=== PATIENT | male | born 1945 | race Caucasian/White ===

== ENCOUNTER 2023-04-06 08:16 | Outpatient (CLI) | payer MEDICARE, BC, SELFPAY ==
--- NOTE | 2023-04-06 09:57 | W.ANESCHARGE ---
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
== END 2023-04-06 08:17 | disposition home or self-care (01) ==
LOC: OP CLINIC 08:18
PROVIDERS: PCP Surgery; Visit Provider Internal Medicine Gastroenterology
DX: K63.5 Polyp of colon (principal); Z86.010 Personal history of colon polyps
CPT/HCPCS: 00811; 45380; 88305; 99100; J2704

== ENCOUNTER 2024-01-20 10:42 | Day surgery (SDC) | payer MEDICARE, BC, SELFPAY ==
[2024-01-20] VITALS (21 sets, daily range): BP systolic 95–162; BP diastolic 67–108; PULSE 49–100; RESP 14–18; TEMP 35.3–36.9; O2SAT 92–96; BMI 36.6
--- NOTE | 2024-01-20 | CRLHL7_ITS ---
For Patients: As a result of the Cures Act, medical imaging exams and procedure reports are released immediately into your electronic medical record. You may view this report before your referring provider. If you have questions, please contact your health care provider. Indication: Postop Technique: Two views right knee Findings/Impression: Hardware from a right total knee arthroplasty is in satisfactory position. Bone alignment is normal. No sign of acute fracture. Postop changes are within normal limits. Dictated by Eliud Bunch MD @ 01/22/2024 12:35:43 PM (Electronically Signed)
[2024-01-20] MEDS: OXYCODONE (CR) 10 MG TAB.ER.12H PO (11:17)
[2024-01-20] MEDS: SODIUM CHLORIDE 0.9 % (FLUSH) 10 ML SYRINGE IVF (11:17)
[2024-01-20] MEDS: ACETAMINOPHEN 500 MG TABLET 1000 MG PO ×2 (11:17→18:47)
[2024-01-20] MEDS: LACTATED RINGERS 1000 ML 1,000 ML 100 ML IV (12:50)
[2024-01-20] MEDS: fentaNYL 100 MCG/2 ML inj IVP (12:55)
[2024-01-20] MEDS: MIDAZOLAM HCL 1 MG/ML inj IVP (12:55)
--- NOTE | 2024-01-20 13:04 | SUR.PREOP ---
TIME?OUT:?1255 PT/RN/MDA?VERIFICATION?OF?SURGICAL?SITE Right Knee,?PROCEDURE Nerve Block,?AND?CONSENT OBTAINED?PRIOR?TO?INVASIVE?PROCEDURE.
--- NOTE | 2024-01-20 13:11 | P.NB_ITS ---
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 Images saved: Yes Medications given in 5ml increments after negative aspiration: Marcaine %: 0.25 mL: 9 Needle gauge: 25 Patient tolerated procedure well: Yes Block Charges Block Charge (with Pro Fee): Genicular Nerve Block
--- NOTE | 2024-01-20 13:11 | P.NB_ITS ---
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 Images saved: Yes Medications given in 5ml increments after negative aspiration: Marcaine %: 0.25 mL: 15 Needle gauge: 20 Precedex (mcg): 25 Patient tolerated procedure well: Yes Block Charges Block Charge (with Pro Fee): Femoral Nerve Use of Ultrasound Machine for Block: Yes- US Guidance/pain block
--- NOTE | 2024-01-20 13:12 | W.ANESCHARGE ---
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
[2024-01-20] MEDS: TRANEXAMIC ACID 100 MG/ML INJ 1000 MG IV (13:42)
[2024-01-20] MEDS: CEFAZOLIN 2 GM in 0.9 % SODIUM CHLORIDE Mini-bag 100 ML IVPB ×2 (13:42→20:11)
--- NOTE | 2024-01-20 13:54 | W.PM.H&PU ---
History & Physical Update History & Physical Update H&P Reviewed and patient assessed: No changes noted
--- NOTE | 2024-01-20 15:07 | PM.ORPRC ---
Procedure Note Date of procedure: 01/20/24 Procedure: PREOPERATIVE DIAGNOSIS: 1. Right knee osteoarthritis, primary, severe POSTOPERATIVE DIAGNOSIS: 1. Right knee osteoarthritis, primary, severe PROCEDURE: 1. Right total knee arthroplasty - subvastus SURGEON: Christian Cruz MD. DENTAL INTERNSHIP: PR[place] - Of note, a skilled assistant manager airside operations was critical for this case to aid in patient positioning, tissue retraction, limb manipulation/positioning, and closure. ANESTHESIA: Spinal anesthetic IMPLANTS: DePuy J&J all cemented TKA - Attune PS femur size 7, size 6 tibia, 5 mm poly spacer, 41mm patella TOURNIQUET: 90 min at 300 torr EBL: 50 ml COMPLICATIONS: None evident INDICATIONS: The patient is a pleasant 78-year-old male who has experienced severe right knee pain and difficulty bearing weight. Workup included x-rays which revealed severe osteoarthrosis in the knee. Given the deformity, the dysfunction, and the pain, as well as the failure of nonoperative management, recommendation was made for surgery. FINDINGS: Full-thickness chondral loss diffusely throughout the medial and patellofemoral compartments. To lesser degree lateral compartment. Degenerative meniscus pathology both compartments but greater on the medial side. Large effusion upon entering the joint. Large tricompartmental osteophytes also noted. DESCRIPTION OF PROCEDURE: Following a thorough discussion of risks, benefits, and alternatives consent was obtained and the right knee was marked. The patient was brought to the operating room and placed supine on the operating table. Induction of anesthesia was undertaken. 2 g IV Ancef and 1 g tranexamic acid was administered within 1 hr of incision preoperatively. Proper time-out was performed identifying proper patient, site, procedure. The operative extremity was prepped and draped in the appropriate sterile fashion using ChloraPrep after the patient was positioned supine with all bony prominences well padded. A longitudinal, anterior, midline skin incision was made starting approximately 3cm proximal to the superior pole of the patella and advanced distal to the tibial tubercle. A subvastus approach was utilized. A medial subperiosteal sleeve was created with knife, chavez elevator and curved osteotome. The retropatellar fatpad was resected and the synovium in the suprapatellar pouch excised to visualize the anterior femoral cortex. Femoral preparation was performed via an intramedullary guide. Step drill allowed access into the femoral canal. The distal cutting guide was placed with 5? of valgus and 11 mm cut on the distal femur due to a mild flexion contracture. Femur was sized using a anterior referencing guide in 3? of external rotation. This found have a best fit with the sizing noted above. The 4 in 1 cutting block was then placed, and the distal femur shaped accordingly. The box cut was then created and the trial implant inserted to confirm appropriate fit. We turned our attention to the proximal tibia. Extramedullary guide was utilized for cutting with the goal of being 90 degree cut from the mechanical axis of the tibia in the varus/valgus plane utilizing tibial crest as the primary alignment. Initially a 2 mm resection was performed from the medial tibial plateau. Ultimately, balancing was achieved in both flexion and extension in both varus and valgus. The knee was able to achieve full extension as well comfortably. The patella was initially measured and found have a thickness of 26 mm. It was resected back to approximately 15 mm. It was sized to be a best fit with as noted above. This was drilled, trial placed. All trials were placed and found to have an excellent stability and balance. At this stage, trial implants were removed, the knee was thoroughly irrigated with normal saline, and the cement was mixed. After irrigation, the knee was thoroughly dried, and cement placed, with the real tibial and femoral implants placed along with the patella. Trial poly spacer was placed and confirmed to have excellent range of motion and full extension, and the real poly spacer opened and inserted. All extra cement was removed, and a 3 min Betadine soak performed. Finally, a final irrigation round with normal saline was performed. Closure performed with 0 Vicryl and #0 Stratafix for the quad tendon/retinaculum. 2-0 Vicryl for the subcutaneous and 4-0 Stratafix for subcuticular closure. Dressings were applied and the patient was awoken from anesthesia after the tourniquet deflated and transferred the PACU in stable condition. A skilled assistant manager airside operations was critical for this case to aid in patient positioning, tissue retraction, bone exposure, limb manipulation/positioning, patient safety, and closure. PLAN: 1. Weight bear as tolerated operative extremity. 2. 23 hr perioperative antibiotics. 3. Ice. 4. PT/OT consults for ambulation assistance/mobility education. 5. Social work consult for discharge planning. 6. DVT prophylaxis with at SCDs and aspirin twice daily.
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
--- NOTE | 2024-01-20 15:42 | W.ANESCHARGE ---
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
--- NOTE | 2024-01-20 16:02 | SUR.PHASEI ---
Patient more alert now after surgery, talking and comfortable, taking ice chips.
--- NOTE | 2024-01-20 16:11 | SUR.PHASEI ---
Patient meets anesthesia discharge criteria from PACU. Waiting for X-ray to arrive to take x-ray of knee.
--- NOTE | 2024-01-20 19:37 | PC.NURSE ---
[id number]: The patient is pleasant and alert and oriented. VSS on RA post surgery. R knee dressing CDI. Has not been up or voided yet. Ate 100% of dinner with no N/V. Saline locked. Plexi pulses applied. The patients family was here after surgery. The patients CPAP was noted to not be in the patients room... [facility] was contacted in regards to obtaining from [facility]. Towards 190 the patient reported 8/10 pain in R knee with movement... ice to R knee, Tylenol given, declined other medication intervention at this time. Call light within reach.
[2024-01-20] MEDS: SENNOSIDES 1 TAB TABLET 2 TAB PO (20:11)
[2024-01-20] MEDS: ASPIRIN 81 MG TABLET EC PO (20:11)
[2024-01-21] MEDS: ACETAMINOPHEN 500 MG TABLET 1000 MG PO ×2 (00:32→06:31)
[2024-01-21] MEDS: CEFAZOLIN 2 GM in 0.9 % SODIUM CHLORIDE Mini-bag 100 ML IVPB (04:09)
[2024-01-21 04:17] VITALS: BP 127/82; PULSE 81; RESP 18; TEMP 36.8; O2SAT 94
[2024-01-21 06:42] LABS: Basophils Absolute Auto 0.01 K/uL (0.00-0.30); Basophils Percent Auto 0.1 % (0.0-3.0); Hemoglobin* 12.8 gm/dL (13.5-17.5); Lymphocytes Percent Auto 8.3 % (20-44); Mean Corpuscular HGB Conc 33 gm/dL (32-36); Mean Corpuscular Hemoglobin 32 pg (26-34); Mean Corpuscular Volume 97 fL (80-100); Monocytes Percent Auto 8.4 % (0.0-11.0); Neutrophils Percent Auto 83.2 % (42.0-72.0); Platelet Count* 245 K/uL (140-440); RDW Coefficient of Variation % 12.8 % (11.5-15.5); Red Blood Count 4.03 m/uL (4.30-5.90); White Blood Count* 8.81 K/uL (4.50-11.00)
[2024-01-21 06:43] LABS: Slide Review Reflex No
--- NOTE | 2024-01-21 07:00 | PC.NURSE ---
Pt alert oriented and vitally stable. Pt pain rated 8/10 throughout shift though stated it was tolerable and did not want a prn. Educated pt on premedicating prior to therapies, pt agreeable to take oxy after breakfast & before therapies, will pass along to oncoming RN.?Pt up to the bathroom, 1 assist walker and gait belt, tolerated well. Dressing on right knee is clean, dry and intact.
[2024-01-21 07:14] LABS: Potassium* 4.3 mmol/L (3.6-5.1); Sodium* 134 mmol/L (135-149)
[2024-01-21 07:17] LABS: Blood Urea Nitrogen* 23 mg/dL (7-30); Creatinine* 1.1 mg/dL (0.5-1.5); Est. Creatinine Clearance* 57.13; Estimated Glomerular Filt Rate 70 ml/min
[2024-01-21 08:09] VITALS: BP 119/71; PULSE 81; PULSE 95; RESP 18; TEMP 37; O2SAT 96
[2024-01-21] MEDS: OXYCODONE 5 MG TABLET PO (08:22)
[2024-01-21] MEDS: ASPIRIN 81 MG TABLET EC PO (08:23)
[2024-01-21] MEDS: SENNOSIDES 1 TAB TABLET 2 TAB PO (08:23)
[2024-01-21 11:00] VITALS: BP 137/79; PULSE 73
--- NOTE | 2024-01-21 11:48 | PM.ORPN ---
Subjective Subjective Date Seen: 01/21/24 Principal diagnosis: Status postop day 1 right total knee arthroplasty Interval history: Patient reports doing okay. No acute events over night. Pain managed with scheduled and PRN medications, ice. DVT prophylaxis: 81 mg aspirin by mouth twice daily, SCDs, walking. Denies fevers, chills, aches, N/V, CP, SOB/WEINBERG, or lightheadedness. States he experiences constipation from oxycodone and is reluctant to take this. Ortho Exam Narrative Exam Narrative: -Patient appears comfortable; no apparent acute distress -Alert and oriented times 3 -Operative knee moderately swollen; soft tissues supple; minimal ecchymosis; no erythematous streaking. Warmth appropriate -Surgical dressing clean, dry, intact; no drainage -Bilateral calfs soft; no significant swelling, edema, tenderness, erythema, discoloration, warmth, or palpable cords -2+ DP/PT pulses, intact dermatomes and myotomes distally (5/5 strength) Const Vital Signs, click to edit/add: Vital Signs - 24 hr 01/20/24 12:55 01/20/24 13:00 01/20/24 15:38 Temperature 97.2 F L Pulse Rate 55 L 53 L 57 L Pulse Rate [Pulse Oximeter] Respiratory Rate 16 16 16 Blood Pressure 146/92 H 122/90 H 111/69 Blood Pressure [Left Arm] Pulse Oximetry 96 96 92 Oxygen Delivery Method Nasal Cannula Nasal Cannula Room Air Oxygen Flow Rate 2 2 01/20/24 15:40 01/20/24 15:45 01/20/24 15:50 Temperature Pulse Rate 62 54 L 49 L Pulse Rate [Pulse Oximeter] Respiratory Rate 16 16 16 Blood Pressure 116/68 95/71 99/67 Blood Pressure [Left Arm] Pulse Oximetry 93 93 96 Oxygen Delivery Method Room Air Room Air Room Air Oxygen Flow Rate 01/20/24 15:55 01/20/24 16:00 01/20/24 16:05 Temperature 97.3 F L Pulse Rate 55 L 58 L 53 L Pulse Rate [Pulse Oximeter] Respiratory Rate 17 17 17 Blood Pressure 107/80 105/73 103/67 Blood Pressure [Left Arm] Pulse Oximetry 95 95 94 Oxygen Delivery Method Room Air Room Air Room Air Oxygen Flow Rate 01/20/24 16:10 01/20/24 16:20 01/20/24 16:30 Temperature 97.3 F L 97.2 F L Pulse Rate 53 L 51 L 51 L Pulse Rate [Pulse Oximeter] Respiratory Rate 17 16 14 Blood Pressure 122/81 124/76 114/76 Blood Pressure [Left Arm] Pulse Oximetry 94 96 95 Oxygen Delivery Method Room Air Room Air Oxygen Flow Rate 01/20/24 16:45 01/20/24 17:00 01/20/24 17:15 Temperature 97.4 F L 97.5 F L 97.5 F L Pulse Rate 49 L 70 51 L Pulse Rate [Pulse Oximeter] Respiratory Rate 16 16 18 Blood Pressure 120/78 130/83 131/79 Blood Pressure [Left Arm] Pulse Oximetry 95 95 96 Oxygen Delivery Method Oxygen Flow Rate 01/20/24 17:45 01/20/24 18:15 01/20/24 19:00 Temperature 98.0 F 98.5 F 98.5 F Pulse Rate 56 L 70 72 Pulse Rate [Pulse Oximeter] Respiratory Rate 16 16 18 Blood Pressure 127/83 162/108 H 138/72 Blood Pressure [Left Arm] Pulse Oximetry 95 96 95 Oxygen Delivery Method Oxygen Flow Rate 01/20/24 20:00 01/20/24 20:00 01/20/24 23:00 Temperature 97.8 F 97.8 F Pulse Rate 99 Pulse Rate [Pulse Oximeter] 99 Respiratory Rate 18 18 Blood Pressure 125/83 Blood Pressure [Left Arm] 125/83 Pulse Oximetry 95 94 94 Oxygen Delivery Method Room Air Room Air Oxygen Flow Rate 01/20/24 23:00 01/20/24 23:00 01/21/24 04:17 Temperature 95.5 F L 98.2 F Pulse Rate Pulse Rate [Pulse Oximeter] 100 81 Respiratory Rate 18 18 18 Blood Pressure Blood Pressure [Left Arm] 123/84 127/82 Pulse Oximetry 94 94 94 Oxygen Delivery Method Room Air Room Air Room Air Oxygen Flow Rate 01/21/24 08:09 01/21/24 08:09 01/21/24 08:09 Temperature Pulse Rate Pulse Rate [Pulse Oximeter] 81 Respiratory Rate 18 18 Blood Pressure Blood Pressure [Left Arm] Pulse Oximetry 96 96 Oxygen Delivery Method Room Air Oxygen Flow Rate 01/21/24 08:09 Temperature 98.6 F Pulse Rate Pulse Rate [Pulse Oximeter] 95 Respiratory Rate 18 Blood Pressure Blood Pressure [Left Arm] 119/71 Pulse Oximetry 96 Oxygen Delivery Method Room Air Oxygen Flow Rate Assessment and Plan Assessment and plan (1) Status post right knee replacement: Problem details: 01/20/2024, Dr. Elkins Status: Acute (2) ANIA on CPAP: Status: Acute (3) Hearing loss: Status: Acute Plan - Complete 23 hour perioperative antibiotics. - PT/OT consult for education and assistance. - Social work consult for discharge planning - Prescribed analgesics as needed - explained how oxycodone is important to make sure he can progress through therapy adequately. We discussed stool softener to help with constipation. - DVT prophylaxis: 81 mg aspirin by mouth twice daily, walking, and SCDs - Anticipation is for discharge to home with family/friends today 01/21/2024 if the patient remains medically stable, pain is controlled, and they are safe with mobilization.
--- NOTE | 2024-01-21 11:58 | PC.NURSE ---
Nursing Care Hours: [id number] pt this shift calm and cooperative, alert and oriented. C/o pain 7-8/10, declines narcotic pain medications but is taking the acetaminophen. Agreed to take 5 mg oxycodone prior to PT/OT. Pain still at 7/10 after therapies, pt declined further narcotics and is icing knee. R knee swollen non pitting, light blue bruising from lateral mid thigh to calf. Instructed at discharge to come in if unable to bend the knee or the pain increases with medications. VSS, walking SB/independent with walker. Mild nausea in the morning, tolerated regular meal. Declined anti nausea or aromatherapy. Wheeled out to family vehicle in stable condition.
== END 2024-01-21 11:10 | disposition home or self-care (01) ==
LOC: OR 10:45 → MEDSURG 10:49
PROVIDERS: PCP Surgery; Visit Provider Orthopaedic Surgery Sports Medicine
PROC: (CPT 27447; principal; 2024-01-20 13:00)
DX: M17.11 Unilateral primary osteoarthritis, right knee (principal); G89.18 Other acute postprocedural pain; G47.33 Obstructive sleep apnea (adult) (pediatric); M35.3 Polymyalgia rheumatica; Z95.810 Presence of automatic (implantable) cardiac defibrillator; L40.9 Psoriasis, unspecified
CPT/HCPCS: 27447; 01402; 36415; 64447; 64454; 73560; 76942; 82565; 84132; 84295; 84520; 85025; 97110; 97116; 97161; 97165; 97530; 99100; A9270; C1776; J0665; J0690; J1100; J2250; J2405; J2704; J3010; J7120

== ENCOUNTER 2024-03-04 13:00 | Outpatient (RCR) | payer MEDICARE, BC, SELFPAY ==
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
--- OUTSIDE RECORDS SUMMARY | 2024-03-09 10:44 | XMS_ITS | Clinical Summary ---
Author Organization [employer] [facility] Address [place], [place] [address] Care Team Providers Care Retail Sales Merchandiser Name Role Phone Jeramie Lopez MD Primary Care Provider [phone] Allergies No known active allergies Medications CPAPIndications: Obstructive sleep apnea CPAP machine for home use at pressure: 8 cmw , Heated humidifier x 1 q 5 yr, Humidifier chamber x 1 q 6 mo, nasal mask x1 q 3mos, with cushion x 2 q mo, Heated tubing x 1 q 3 mo, Headgear x 1 q 6 mo, Filters: Disposable x 2 q mo non-disposable filters x1 q 6mo, Length of Need: 99 months, Frequency of use: Daily 1 Each 11 2 Active triamcinolone 0.1 % lotionIndication s:Psoriasis Apply topically to affected area(s) two times daily. Use for up to 2 weeks straight 60 mL 11 4 Active sildenafiL, pulm.hypertensio n, (REVATIO) 20 mg tabletIndication s:Erectile dysfunction, unspecified erectile dysfunction type Take 1-5 pills (start at lower dose and increase next time if needed) 30 mins prior to sexual intercourse 30 Tablet 1 4 Active Active Problems Problem Noted Date Diagnosed Date Obstructive sleep apnea 05/26/2019 Adenomatous colon polyp 02/28/2019 Overview (04/08/2023): Colonoscopy 01/2019 large polyp, repeat in 6 months at [facility] Colonoscopy 08/2019 normal, repeat in 3 years PEG prep Colonoscopy 03/2023 TA, repeat in 5 years Polymyalgia rheumatica 09/07/2015 Pacemaker 01/09/2015 Overview (01/09/2015): Placed 01/11 due to vasovagal syncope. Erectile dysfunction following simple prostatect zain 10/23/2014 Prostate cancer 09/04/2009 Overview (08/26/2013): Pesotum 3+3=6 Prostatectomy 2009 Unspecified hearing loss 06/13/2009 Overview (06/13/2009): High frequency and problems with Discrimination. Other psoriasis 01/15/2007 Overview (08/26/2013): On elbows Resolved Problems Problem Noted Date Diagnosed Date Resolved Date History of adenomatous polyp of colon 10/10/2019 01/07/2024 Symptomatic bradycardia 12/29/201412/28 LOC (loss of consciousness) 12/29/2014 01/11/2019 USP (current) use of anticoagulants 12/19/2013 01/16/2014 Metatarsalgia 07/30/2011 01/07/2024 Knee pain 06/13/2009 01/11/2019 Overview (06/13/2009): Left knee with valgus deformity and suspect leg length discrepancy. Routine general medical exam ination at a health care facility 11/25/2006 01/11/2019 Overview (02/17/2007): colonoscopy 02/11/2007 Recheck 10 yrs. Encounters Date Type Department Care Team Description 01/20/2024 Orders Only [facility] Scanner 1 scan: (1-Ord) [facility], XR KNEE RT 2V, 01/20/2024 01/07/2024 10:30 AM CDT Ancillary Procedure [facility] [address] [place] [address] 01/07/2024 9:25 AM CDT Office Visit [facility] [address] [place] [address] Jeramie Lopez MD Medicare ANNUAL (subsequent) Visit; Preoperative Exam (Right knee replacement [facility] Dr. Elkins 01/20/24) 01/07/2024 Travel from Last 3 Months Immunizations Name Administration Dates Next Due COVID-19 vaccine ([employer] 30mcg/0.3mL) P F, MDV 06/23/2020,06/02/2020 Td (Age >=7 Years) 11/04/1995 Tdap 07/25/2020,01/15/2007 Zoster (Zostavax-ZVL, live) 12/07/2012 Family History Medical History Relation Name Comments Heart Disease Father Crescencio Pulm Fibrosis/ Valve Replacement Psychiatric illness Father Crescencio onset af ter Heart Surgery Osteoporosis Mother Kelly Stroke Mother Kelly Cancer-colon No Family History Relation Name Status Comments Father Crescencio (Age 74) Mother Kelly Alive Social History Tobacco Use Types Packs/Day Years Used Date Smoking Tobacco: Former Cigarettes 1.5 13 1 967 - 03/30/1979 Smokeless Tobacco: Never Tobacco Cessation:Counseling Given: Not Answered Alcohol Use Standard Drinks/Week Comments Not Currently 0 (1 standard drink = 0.6 oz pur e alcohol) Socail beer PHQ-2 Answer Date Recorded PHQ-2 TOTAL SCORE 0 01/07/2024 Social Connections Answer Date Recorded Do you often feel lonely or isolated from those around you? 0 03/17/2023 Financial Resource Strain Answer Date R ecorded Difficulty of Paying Living Expenses 3 03/17/2023 Difficulty of Paying Living Expenses Not on file 03/17/2023 Food Insecurity Answer Date Recorded Do you worry your food will run out before you are able to buy more? 1 03/17/2023 Transportation Needs Answer Date Record ed Does lack of transportation keep you from medica l appointments? 1 03/17/2023 Does lack of transportation keep you from work, meetings or getting things that you need? 1 03/17/2023 Housing Stability Answer Date Recorded What is your housing situation today? 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 on file Not on file Not on file Not on file Not on file Not on file Not on file Obstetrics History Last Filed Vital Signs Vital Sign Reading Time Taken Comments Blood Pressure 121/83 01/07/2024 9:21 AM CDT Pulse 73 01/07/2024 9:21 AM CDT Temperature 36.2 C (97.1 F) 07/04/2020 11:38 AM CDT Respiratory Rate 20 05/25/2019 1:52 PM PRODUCT MGR Oxygen Saturation 95% 01/07/2024 9:21 AM CDT Inhaled Oxygen Concentration - - Weight 112.6 kg (248 lb 4.8 oz) 01/07/2024 9:21 AM CDT Height 177.5 cm (5' 9.88) 01/07/2024 9:21 AM CD T Body Mass Index 35.75 01/07/2024 9:21 AM CDT Plan of Treatment Upcoming Encounters Date Type Department Care Team (Late st Contact Info) Description 04/12/2024 11:30 AM PRODUCT MGR Cardiac Device Check [facility] [place] [facility] [address] [place] [address] Health Maintenance Due Date Last Done Comments Pneumococcal series for age 65+ (1 of 2 - PCV) 11/20/1951 Zoster (shingles) series for age 50+ (1 of 2) 02/01/2013 12/07/2012 RSV vaccine for adults or (1 - 1-dose 75+ series) 11/20/2022 COVID-19 vaccine series ( season) 2023 01/01/2021, 06/23/2020, 06/02/2020 Influenza for age 65+ 11/29/2023 BMI (ht and wt on same day) for age 18+ 01/06/2025 01/07/2024, 07/23/2021, 07/25/2020, Additional history exists Depression screening for age 12+ 01/06/2025 01/07/2024, 07/23/2021, 01/11/2019, Additional history exists Medicare Wellness for age 65+ 01/07/2025, 07/23/2021, 01/11/2019, Additional history exists Tetanus booster 07/25/2030 07/25/2020, 12/28, 11/04/1995 Hepatitis C screening for ag e 18-79 Completed 12/07/2018 Tdap Completed 07/25/2020, 01/15/2007 Medical Devices Implanted Type Area Program Support Specialist Device Identifier Shelf Expiration Date Model / Serial / Lot Dual Chamber Mri Conditional Pacemaker Implanted:2014 by Jigar Salazar MD (Quantity not on file) Standard Pacemaker [employer] ADVISA MRI [id number] / [id number] / Procedures Procedure Name Priority Date/Time Associated Diagnosis Comments SCAN-RADIOLOGY REPORT 01/20/2024 12:00 AM CDT EKG 12 LEAD Routine 01/08/2024 10:25 AM CDT WE[place]G (dyspnea on exertion) MA READING EKG - NO CHARGE, COMP ONLY Routine 01/08/2024 10:24 AM CDT [place]G (dyspnea on exertion) XR CHEST 2 VIEWS PA AND LATERAL Routine 01/07/2024 10:50 AM CDT [place]G (dyspnea on exertion) HEMOGLOBIN Routine 01/07/2024 10:37 AM CDT [place]G (dyspnea on exertion) PSA (TOTAL) ([facility]) Routine 01/07/2024 1 0:37 AM CDT Prostate cancer (HC) BASIC METABOLIC PANEL Routine 01/07/2024 10:37 AM CDT Stenosis of right carotid artery LIPID PANEL Routine 01/07/2024 10:37 AM CDT Stenosis of right carotid artery ANTI HCV Routine 12/07/2018 9:31 AM CDT Need for hepatitis C screening test from Last 3 Months or Most Recently Relevant to Health Maintenance Results * SCAN-RADIOLOGY REPORT (01/20/2024 12:00 AM CDT) Anatomical Region Laterality Modality Other us Scanner OTHER Final Result * EKG 12 LEAD (01/08/2024 10:25 AM CDT) us Jeramie Lopez MD EKG ORD Final Resu lt * MA READING EKG - NO CHARGE, COMP ONLY (01/08/2024 10:24 AM CDT) us Jeramie Lopez MD PB - PROVIDER READINGS Fin al Result * XR CHEST 2 VIEWS PA AND LATERAL (01/07/2024 10:50 AM CDT) Anatomical Region Laterality Modality CHEST, THORAX, Lung, HEART Compu apoorva Radiography 01/07/2024 2:38 PM CDT Impressions 01/07/2024 2:38 PM CDT 1. No acute cardiopulmonary disease is seen. Dictated by Pablo Urbina MD @ 01/07/2024 2:38:35 PM Dictated by: Pablo Urbina MD @ 01/07/2024 14:38:38 (Electronically Signed) Narrative 01/07/2024 2:38 PM CDT For Patients: As a result of the Cures Act, medical imaging exams and procedure reports are released immediately into your electronic medical record. You may view this report before your referring provider. If you have questions, please contact your health care provider. INDICATION: Dyspnea on exertion TECHNIQUE: Chest radiograph 3 views COMPARISON: 01/02/2015 FINDINGS: Mediastinum: The mediastinum is normal in appearance. The heart silhouette is normal in size and morphology. There is a left cardiac pacer present with leads in the right atrium and right ventricle. Lung: Both lungs are unremarkable in appearance with small lung volumes. No sign of pleural effusion seen. No pneumothorax is identified. Bone and Soft tissue: Unremarkable for age. Procedure Note Pablo Urbina MD - 01/07/2024 For Patients: As a result of the s Act, medical imagingexams and procedure reports are released immediately into your electronicmedical record. You may view this report before your referring provider.If you have questions, please contact your health care provider. INDICATION: Dyspnea on exertion TECHNIQUE: Chest radiograph 3 views COMPARISON: 01/02/2015 FINDINGS: Mediastinum: The mediastinum is normal in appearance. The heart silhouetteis normal in size and morphology. There is a left cardiac pacer presentwith leads in the right atrium and right ventricle. Lung: Both lungs are unremarkable in appearance with small lung volumes.No sign of pleural effusion seen. No pneumothorax is identified. Bone and Soft tissue: Unremarkable for age. IMPRESSION: 1. No acute cardiopulmonary disease is seen. Dictated by Pablo Urbina MD @ 01/07/2024 2:38:35 PM Dictated by: Pablo Urbina MD @ 01/07/2024 14:38:38 (Electronically Signed) Jeramie Lopez MD GENERAL IMAGING Final Resu lt * PSA (TOTAL) ([facility]) (01/07/2024 10:37 AM CDT) PSA, TOTAL 0.04 < OR = 4.00 ng/mL [facility] Comment: The total PSA value from this assay system is standardized against the WHO standard. The test result will be approximately 20% lower when compared to the equimolar-standardized total PSA (Hola Josefina). Comparison of serial PSA results should be interpreted with this fact in mind. This test was performed using the Siemens chemiluminescent method. Values obtained from different assay methods cannot be used interchangeably. PSA levels, regardless of value, should not be interpreted as absolute evidence of the presence or absence of disease. Blood BLOOD SPECIMEN / Unknown 01/07/2024 10:37 AM CDT 01/07/2024 10:38 AM CDT Jeramie Lopez MD SEND OUTS Final Resu lt [facility] [address] [place] [address], [place] [phone] [facility] [address] [place] [address] * HEMOGLOBIN (01/07/2024 10:37 AM CDT) HEMOGLOBIN 14.4 13.2 - 17.1 g/dL [facility] Blood BLOOD SPECIMEN / Unknown 01/07/2024 10:37 AM CDT 01/07/2024 10:38 AM CDT us Jeramie Lpoez MD HEMATOLOGY Final Resu lt [facility] [address] [place] [address], [place] [phone] [facility] [address] [place] [address] * LIPID PANEL (01/07/2024 10:37 AM CDT) CHOLESTEROL, TOTAL 151 <200 mg/dL [facility] HDL CHOLESTEROL 50 > OR = 40 mg/dL [facility] TRIGLYCERIDES 73 <150 mg/dL [facility] LDL-CHOLESTEROL 85 mg/dL (calc) [facility] Comment: Reference range: <100 Desirable range <100 mg/dL for primary prevention; <70 mg/dL for patients with CHD or diabetic patients with > or = 2 CHD risk factors. LDL-C is now calculated using the Rico calculation, which is a validated novel method providing better accuracy than the Friedewald equation in the estimation of LDL-C. Wyatt OQUENDO et al. ISSAC. 2013;310(19): 4674-3714 (http://education.[employer]/faq/DWF328) CHOL/HDLC RATIO 3.0 <5.0 (calc) [facility] NON HDL CHOLESTEROL 101 <130 mg/dL (calc) [facility] Comment: For patients with diabetes plus 1 major ASCVD risk factor, treating to a non-HDL-C goal of <100 mg/dL (LDL-C of <70 mg/dL) is considered a therapeutic option. Blood BLOOD SPECIMEN / Unknown 01/07/2024 10:37 AM CDT 01/07/2024 10:38 AM CDT us Jeramie Lopez MD CHEMISTRY Final Resu lt [facility] [address] [place] [address], [facility] [address] [place] [address] * BASIC METABOLIC PANEL (01/07/2024 10:37 AM CDT) GLUCOSE 90 65 - 99 mg/dL [facility] Comment: Fasting reference interval UREA NITROGEN (BUN) 22 7 - 25 mg/dL [facility] CREATININE 1.08 0.70 - 1.28 mg/dL [facility] EGFR 71 > OR = 60 mL/min/1. 73m2 [facility] BUN/CREATININE RATIO SEE NOTE: 6 - 22 (calc) [facility] Comment: Not Reported: BUN and Creatinine are within reference range. SODIUM 140 135 - 146 mmol/L [facility] POTASSIUM 4.7 3.5 - 5.3 mmol/L [facility] CHLORIDE 105 98 - 110 mmol/L [facility] CARBON DIOXIDE 27 20 - 32 mmol/L [facility] ELECTROLYTE BALANCE 8 7 - 17 mmol/L (calc) [facility] CALCIUM 9.6 8.6 - 10.3 mg/dL [facility] Blood BLOOD SPECIMEN / Unknown 01/07/2024 10:37 AM CDT 01/07/2024 10:38 AM CDT us Jeramie Lopez MD CHEMISTRY Final Resu lt [facility] [address] [place] [address], [address] [address] * ANTI HCV (12/07/2018 9:31 AM CDT) Pathologist [facility] HEPATITIS C ANTIBODY Non-React lisa Non-React lisa 12/07/2018 6:39 PM CDT [facility] Comment:Antibodies to HCV no t detected; does not exclude the possibility of exposure to HCV. Blood BLOOD SPECIMEN / Unknown Venipuncture / Unknown 12/07/2018 9:31 AM CDT 12/07/2018 9:31 AM CDT Jeramie Lopez MD SEND OUTS Final [facility]u lt [facility] [address] [place] [address], from Last 3 Months or Most Recently Relevant to Health Maintenance Insurance MEDICARE PART A [place] [address] [phone] [employer] BLUE MR PB ONLY [employer] [place] BLUE HB ONLY MEDICARE PART B HB ONLY MEDICARE PROVIDER BASED [facility] Advance Directives * Full Code (Latest Code Status on File) Date Activated Date Inactivated Comments 01/01/2015 9:09 AM 01/02/2015 2:06 PM * Full Code Date Activated Date Inactivated Comments 12/31/2014 8:21 AM 01/01/2015 9:09 AM Care Teams Retail Sales Merchandiser Relationship Specialty Start Date End Date [place] [address] PCP - General Family Practice 10/26/15
== END 2024-07-02 23:59 | disposition home or self-care (01) ==
PROVIDERS: PCP Surgery; Visit Provider Orthopaedic Surgery Sports Medicine
DX: M17.11 Unilateral primary osteoarthritis, right knee (principal); Z96.651 Presence of right artificial knee joint; R53.1 Weakness; M25.561 Pain in right knee; Z51.89 Encounter for other specified aftercare
CPT/HCPCS: 97110; 97112; 97116; 97140; 97161